=== PATIENT | male | born 1990 | race Caucasian/White ===

== ENCOUNTER 2018-06-15 00:06 | Emergency (ER) | payer MEDICAID ==
[~2018-06-15] VITALS: Ht 188 cm; Wt 122.7 kg
[~2018-06-15 00:06] MED LIST: ALBU18HF2 INH; ALLO100T PO; BECL7.3A INH; CLIN300C17 PO; CYCL-1 PO; HYDR-4383 PO; IBUP-1986 PO; METH-360 PO
[2018-06-15] MEDS ORDERED: ipratropium/albuterol 3ml nebule ONE (00:24)
[2018-06-15] MEDS ORDERED: ipratropium/albuterol 3ml nebule NEB ONE (00:25)
[2018-06-15] MEDS ORDERED: methylPREDNISolone sod succ 125mg/2ml vial IM ONE (00:30)
[2018-06-15] MEDS ORDERED: albuterol 2.5 MG/3 ML nebule CONTNEB STA (00:36)
[2018-06-15] MEDS ORDERED: normal saline 1000ml 1,000 ML IV ONE (02:05)
[2018-06-15] MEDS: magnesium 1gm/100ml D5W IVPB 100 ML IV SCH ×2 (02:18→03:19)
[2018-06-15 02:22] LABS: BASOPHILS % (AUTO) 0 % (0-1); EOSINOPHILS # (AUTO) 0.8 X10'3 (0-0.9); EOSINOPHILS % (AUTO) 4.1 % (0-6); HEMATOCRIT 51.9 % (42.0-52.0); HEMOGLOBIN 17.8 g/dl (14.0-17.9); LYMPHOCYTES # (AUTO) 1.3 X10'3 (1.1-4.8); LYMPHOCYTES % (AUTO) 7.1 % (21-51); MEAN CORPUSCULAR HEMOGLOBIN 29.5 PG (27.0-31.0); MEAN CORPUSCULAR HGB CONC 34.2 % (33.0-36.5); MEAN CORPUSCULAR VOLUME 86.3 FL (78-98); MEAN PLATELET VOLUME 8.4 FL (7.4-10.4); MONOCYTES # (AUTO) 0.5 X10'3 (0-0.9); MONOCYTES % (AUTO) 2.5 % (2-12); NEUTROPHILS # (AUTO) 15.7 X10'3 (1.8-7.7); NEUTROPHILS % (AUTO) 86.3 % (42-75); PLATELET COUNT 306 X10'3 (140-440); RED BLOOD COUNT 6.02 X10'6 (4.70-6.10); RED CELL DISTRIBUTION WIDTH 12.9 % (11.5-14.5); WHITE BLOOD COUNT 18.2 X10'3 (4.5-11.0)
[2018-06-15 02:40] LABS: ALANINE AMINOTRANSFERASE 66 U/L (12-78); ALBUMIN 4.3 G/DL (3.4-5.0); ALBUMIN/GLOBULIN RATIO 1.2 (1.1-1.5); ALKALINE PHOSPHATASE 79 IU/L (46-116); ANION GAP 13 (8-16); ASPARTATE AMINO TRANSFERASE 21 U/L (10-37); BILIRUBIN,TOTAL 0.8 MG/DL (0.1-1.0); BLOOD UREA NITROGEN 12 MG/DL (7-18); BUN/CREATININE RATIO 9.4 (5.4-32.0); CHLORIDE 101 MMOL/L (99-107); CREATININE 1.28 MG/DL (0.60-1.10); GLUCOSE 125 MG/DL (70-104); POTASSIUM 3.4 MMOL/L (3.5-5.1); SODIUM 139 MMOL/L (135-145); TOTAL CARBON DIOXIDE 25.5 MMOL/L (24-32); TOTAL PROTEIN 7.8 G/DL (6.4-8.2); eGFR 66 ML/MIN
[2018-06-15] MEDS ORDERED: azithromycin/NS 500mg/250ml 250 ML IV ONE (03:15)
[2018-06-15] MEDS ORDERED: albuterol 2.5 mg/0.5ml nebule NEB ONE (04:50)
[2018-06-15] MEDS ORDERED: albuterol 2.5 MG/3 ML nebule ONE (05:11)
[2018-06-15] MEDS ORDERED: PRED20TA PO (05:39)
[2018-06-15] MEDS ORDERED: AZIT-63 PO (05:39)
[2018-06-15 05:42] VITALS: BP 150/90
== END 2018-06-15 05:47 | disposition home or self-care (01) ==
LOC: ER 00:06
DX: J45.909 Unspecified asthma, uncomplicated (principal); G89.29 Other chronic pain; M10.9 Gout, unspecified; F12.90 Cannabis use, unspecified, uncomplicated; Z98.890 Other specified postprocedural states; Z79.899 Other long term (current) drug therapy
CPT/HCPCS: 36415; 71045; 80053; 85025; 94640; 94644; 94760; 96365; 96366; 96368; 96372; 99285; J0456; J2930; J7611

== ENCOUNTER 2018-06-21 12:19 | Emergency (ER) | payer MEDICAID ==
[~2018-06-21] VITALS: Ht 188 cm; Wt 123.8 kg
[~2018-06-21 12:19] MED LIST changes: +AZIT-63 PO; +PRED20TA PO
[2018-06-21] MEDS ORDERED: albuterol 2.5 MG/3 ML nebule NEB ONE (14:05)
[2018-06-21] MEDS ORDERED: ALBU18HF2 INH (14:09)
[2018-06-21] MEDS ORDERED: PRED20TA PO (14:09)
[2018-06-21] MEDS ORDERED: ipratropium/albuterol 3ml nebule NEB ONE (15:20)
[2018-06-21 15:22] VITALS: BP 129/87
== END 2018-06-21 16:49 | disposition home or self-care (01) ==
LOC: ER 12:20
DX: J45.901 Unspecified asthma with (acute) exacerbation (principal); G89.29 Other chronic pain; F12.90 Cannabis use, unspecified, uncomplicated; M10.9 Gout, unspecified; Z98.890 Other specified postprocedural states; Z79.899 Other long term (current) drug therapy
CPT/HCPCS: 94640; 94760; 99284; 99285

== ENCOUNTER 2018-10-13 21:26 | Emergency (ER) | payer MEDICAID ==
[~2018-10-13] VITALS: Ht 188 cm; Wt 118.2 kg
[~2018-10-13 21:26] MED LIST changes: -AZIT-63 PO; -PRED20TA PO
[2018-10-13] MEDS ORDERED: acetaminophen 325mg tablet PO STA (21:39)
[2018-10-13] MEDS ORDERED: PRED20TA PO (22:28)
[2018-10-13] MEDS ORDERED: DOXY100C43 PO (22:28)
[2018-10-13] MEDS ORDERED: ALBU8HFA PO (22:28)
[2018-10-13 22:32] LABS: ALANINE AMINOTRANSFERASE 66 U/L (12-78); ALBUMIN 4.7 G/DL (3.4-5.0); ALBUMIN/GLOBULIN RATIO 1.3 (1.1-1.5); ALKALINE PHOSPHATASE 82 IU/L (46-116); ANION GAP 9 (8-16); ASPARTATE AMINO TRANSFERASE 23 U/L (10-37); BILIRUBIN,TOTAL 0.7 MG/DL (0.1-1.0); BLOOD UREA NITROGEN 11 MG/DL (7-18); BUN/CREATININE RATIO 9.2 (5.4-32.0); CALCIUM 9.3 MG/DL (8.5-10.1); CHLORIDE 98 MMOL/L (99-107); CREATININE 1.19 MG/DL (0.60-1.10); GLUCOSE 104 MG/DL (70-104); POTASSIUM 3.7 MMOL/L (3.5-5.1); SODIUM 134 MMOL/L (135-145); TOTAL CARBON DIOXIDE 26.8 MMOL/L (24-32); TOTAL PROTEIN 8.4 G/DL (6.4-8.2); eGFR 72 ML/MIN
[2018-10-13] MEDS ORDERED: ipratropium/albuterol 3ml nebule NEB ONE (22:40)
[2018-10-13] MEDS ORDERED: dexamethasone 4mg tablet PO ONE (22:40)
--- NOTE | 2018-10-13 22:40 | NUR ---
flu swab cancelled per md monzon
[2018-10-13 22:43] LABS: BASOPHILS # (AUTO) 0.1 X10'3 (0-0.2); BASOPHILS % (AUTO) 0.8 % (0-1); EOSINOPHILS % (AUTO) 6.8 % (0-6); LYMPHOCYTES % (AUTO) 6.7 % (21-51); MEAN CORPUSCULAR HEMOGLOBIN 29.8 PG (27.0-31.0); MEAN CORPUSCULAR HGB CONC 34.9 g/dL (33.0-36.5); MEAN CORPUSCULAR VOLUME 85.6 FL (78-98); MEAN PLATELET VOLUME 8.7 FL (7.4-10.4); MONOCYTES # (AUTO) 1.2 X10'3 (0-0.9); MONOCYTES % (AUTO) 8.5 % (2-12); NEUTROPHILS # (AUTO) 11.1 X10'3 (1.8-7.7); NEUTROPHILS % (AUTO) 77.2 % (42-75); PLATELET COUNT 311 X10'3 (140-440); RED BLOOD COUNT 6.19 X10'6 (4.70-6.10); RED CELL DISTRIBUTION WIDTH 13.5 % (11.5-14.5); WHITE BLOOD COUNT 14.4 X10'3 (4.5-11.0)
[2018-10-13 22:52] LABS: HEMOGLOBIN 18.5 g/dl (14.0-17.9)
[2018-10-13 23:08] VITALS: BP 153/76
== END 2018-10-13 23:16 | disposition home or self-care (01) ==
LOC: ER 21:27
DX: J20.9 Acute bronchitis, unspecified (principal); J45.909 Unspecified asthma, uncomplicated; G89.29 Other chronic pain; M54.9 Dorsalgia, unspecified; F17.210 Nicotine dependence, cigarettes, uncomplicated; F12.90 Cannabis use, unspecified, uncomplicated
CPT/HCPCS: 36415; 71045; 80053; 83605; 84145; 85025; 87040; 94640; 94760; 99284; 99406; J8540

== ENCOUNTER 2018-12-11 01:11 | Emergency (ER) | payer MEDICAID ==
[~2018-12-11] VITALS: Ht 190.5 cm; Wt 127.3 kg
[2018-12-11 01:20] VITALS: BP 180/112
--- NOTE | 2018-12-11 01:33 | NUR ---
Patient sitting calmly on gurney, reports tooth pain with many broken teeth.
[2018-12-11] MEDS ORDERED: HYDROcodone/acetaminophen 10/325mg tab PO STA (01:39)
[2018-12-11] MEDS ORDERED: AMOX500C2 PO (02:15)
[2018-12-11] MEDS ORDERED: HYDR-3965 PO (02:15)
== END 2018-12-11 02:43 | disposition home or self-care (01) ==
LOC: ER 01:11
DX: K02.9 Dental caries, unspecified (principal); J45.909 Unspecified asthma, uncomplicated; G89.29 Other chronic pain; F12.90 Cannabis use, unspecified, uncomplicated; Z98.890 Other specified postprocedural states; Z79.899 Other long term (current) drug therapy
CPT/HCPCS: 99283

== ENCOUNTER 2019-08-14 12:28 | Emergency (ER) | payer MEDICAID ==
[~2019-08-14] VITALS: Ht 190.5 cm; Wt 134.0 kg
[2019-08-14 12:43] VITALS: BP 148/97
[2019-08-14] MEDS ORDERED: ONDA4TAB6 PO (14:12)
== END 2019-08-14 14:31 | disposition home or self-care (01) ==
LOC: ER 12:29
DX: J06.9 Acute upper respiratory infection, unspecified (principal); J45.909 Unspecified asthma, uncomplicated; G89.29 Other chronic pain; M10.9 Gout, unspecified; F12.90 Cannabis use, unspecified, uncomplicated; Z98.890 Other specified postprocedural states; Z79.899 Other long term (current) drug therapy
CPT/HCPCS: 99283

== ENCOUNTER 2019-09-30 16:56 | Emergency (ER) | payer MEDICAID ==
[~2019-09-30] VITALS: Ht 190.5 cm; Wt 134.6 kg
[~2019-09-30 16:56] MED LIST changes: +ONDA4TAB6 PO
[2019-09-30] MEDS ORDERED: IBUP-1985 PO (18:10)
[2019-09-30] MEDS ORDERED: ibuprofen 200mg tablet PO ONE (18:25)
[2019-09-30 18:29] VITALS: BP 159/100
== END 2019-09-30 18:30 | disposition home or self-care (01) ==
LOC: ER 16:57
DX: B34.9 Viral infection, unspecified (principal); R51 Headache; R09.81 Nasal congestion; R11.0 Nausea; R10.9 Unspecified abdominal pain; M79.10 Myalgia, unspecified site; J45.909 Unspecified asthma, uncomplicated; G89.29 Other chronic pain; F12.90 Cannabis use, unspecified, uncomplicated; Z98.890 Other specified postprocedural states; Z79.2 Long term (current) use of antibiotics; Z79.899 Other long term (current) drug therapy
CPT/HCPCS: 87502; 87503; 99283

== ENCOUNTER 2020-08-14 17:38 | Emergency (ER) | payer MEDICAID ==
[~2020-08-14] VITALS: Ht 190.5 cm; Wt 139.5 kg
[~2020-08-14 17:38] MED LIST changes: +IBUP-1985 PO
[2020-08-14 18:39] VITALS: BP 149/79
[2020-08-14] MEDS ORDERED: predniSONE 20 mg tablet PO ONE (18:50)
[2020-08-14] MEDS ORDERED: ALBU18HF2 INH (18:54)
== END 2020-08-14 19:04 | disposition home or self-care (01) ==
LOC: ER 17:38
DX: J45.901 Unspecified asthma with (acute) exacerbation (principal); R07.89 Other chest pain; G89.29 Other chronic pain; M10.9 Gout, unspecified; F12.90 Cannabis use, unspecified, uncomplicated; Z98.890 Other specified postprocedural states; Z79.2 Long term (current) use of antibiotics; Z79.899 Other long term (current) drug therapy
CPT/HCPCS: 99283; J7512

== ENCOUNTER 2020-08-21 17:05 | Emergency (ER) | payer MEDICAID ==
[~2020-08-21] VITALS: Ht 190.5 cm; Wt 136.4 kg
[2020-08-21 18:10] LABS: BASOPHILS # (AUTO) 0.1 X10'3 (0-0.2); BASOPHILS % (AUTO) 0.8 % (0-1); EOSINOPHILS # (AUTO) 0.3 X10'3 (0-0.9); EOSINOPHILS % (AUTO) 2.3 % (0-6); HEMATOCRIT 49.1 % (42.0-52.0); HEMOGLOBIN 17.3 g/dl (14.0-17.9); LYMPHOCYTES # (AUTO) 2.3 X10'3 (1.1-4.8); LYMPHOCYTES % (AUTO) 21.2 % (21-51); MEAN CORPUSCULAR HEMOGLOBIN 30.5 PG (27.0-31.0); MEAN CORPUSCULAR HGB CONC 35.2 g/dL (33.0-36.5); MEAN CORPUSCULAR VOLUME 86.7 FL (78-98); NEUTROPHILS # (AUTO) 7.2 X10'3 (1.8-7.7); NEUTROPHILS % (AUTO) 66.7 % (42-75); PLATELET COUNT 332 X10'3 (140-440); RED BLOOD COUNT 5.67 X10'6 (4.70-6.10); RED CELL DISTRIBUTION WIDTH 13.2 % (11.5-14.5); WHITE BLOOD COUNT 10.8 X10'3 (4.5-11.0)
[2020-08-21 18:29] LABS: ALANINE AMINOTRANSFERASE 141 U/L (12-78); ALBUMIN 4.5 G/DL (3.4-5.0); ALBUMIN/GLOBULIN RATIO 1.2 (1.1-1.5); ALKALINE PHOSPHATASE 58 IU/L (46-116); ANION GAP 9 (8-16); ASPARTATE AMINO TRANSFERASE 44 U/L (10-37); BILIRUBIN,TOTAL 0.5 MG/DL (0.1-1.0); BLOOD UREA NITROGEN 10 MG/DL (7-18); BUN/CREATININE RATIO 9.2 (5.4-32.0); CALCIUM 9.1 MG/DL (8.5-10.1); CHLORIDE 101 MMOL/L (99-107); CREATININE 1.09 MG/DL (0.60-1.10); GLUCOSE 126 MG/DL (70-104); POTASSIUM 3.7 MMOL/L (3.5-5.1); SODIUM 137 MMOL/L (135-145); TOTAL CARBON DIOXIDE 26.8 MMOL/L (24-32); TOTAL PROTEIN 8.2 G/DL (6.4-8.2); eGFR 79 ML/MIN
[2020-08-21] MEDS ORDERED: ALB0.5UD IH (18:32)
[2020-08-21] MEDS ORDERED: AZIT-63 PO (18:32)
== END 2020-08-21 18:50 | disposition home or self-care (01) ==
LOC: ER 17:06
DX: R09.89 Other specified symptoms and signs involving the circulatory and respiratory systems (principal); R07.89 Other chest pain; J45.909 Unspecified asthma, uncomplicated; G89.29 Other chronic pain; M10.9 Gout, unspecified; F17.200 Nicotine dependence, unspecified, uncomplicated; F12.90 Cannabis use, unspecified, uncomplicated; Z98.890 Other specified postprocedural states; Z79.2 Long term (current) use of antibiotics; Z79.899 Other long term (current) drug therapy
CPT/HCPCS: 36415; 71045; 80053; 85025; 99284